=== PATIENT | female | born 1990 | race African-American/Black ===

== ENCOUNTER 2023-08-08 02:59 | Emergency (ER) | payer OTHER ==
[2023-08-08 03:27] LABS: Bilirubin Neg (Negative); Blood, Urine 250 (Negative); Clarity Cloudy (Clear); Glucose, Urine (Dipstick) Normal (Negative); Ketone, Urine 5 mg/dL (Negative); Leukocyte 500 (Negative); Nitrite Negative (Negative); Protein, Urine (Dipstick) 100 mg/dl (Neg-Trace); Urobilinogen Normal mg/dL (Less than 2)
[2023-08-08 03:31] LABS: Pregnancy Test - Urine (BHCG) Negative (Negative)
[2023-08-08 03:32] LABS: Pregu Control Background? CLEAR/WHITE (CLR/WHITE); Pregu Control Bar Appear? YES (CONTROL BAR)
[2023-08-08 03:35] LABS: CAUTI Indications for Culture Pelvic or flank pain; WBC/HPF Greater Than 50 HPF (0-3)
[2023-08-08 03:37] LABS: Bacteria/HPF 2+ HPF (None Seen)
[2023-08-08 03:39] LABS: Urine Culture Reflex Yes Yes
== END 2023-08-08 04:00 | disposition home or self-care (01) ==
LOC: CSHERS 02:59
DX: N30.90 Cystitis, unspecified without hematuria (principal); N39.0 Urinary tract infection, site not specified
CPT/HCPCS: 81001; 81025; 87077; 87086; 87186; 99283